=== PATIENT | female | born 2000 | race Caucasian/White ===

== ENCOUNTER 2021-11-09 15:18 | Outpatient (CLI) | payer OTHER, SELFPAY | END 2021-11-09 23:59 | disposition short-term general hospital (02) | LOC: IMMUN 11-17 15:18 | PROVIDERS: Visit Provider Family Medicine | DX: Z23 Encounter for immunization (principal) ==

== ENCOUNTER 2022-08-13 01:46 | Emergency (ER) | payer OTHER, SELFPAY ==
[2022-08-13 01:49] VITALS: BP 129/82; PULSE 102; RESP 20; TEMP 36.1; O2SAT 100; BMI 21.6
[2022-08-13] MEDS: Ondansetron ODT 4 MG Tablet PO (02:17)
--- NOTE | 2022-08-13 02:55 | EDS_ITS ---
HPI History of Present Illness Chief Complaint: ETOH Intox Narrative Narrative: Patient is a 22-year-old female with past medical history of anxiety/depression. She went to a [employer] alliance party this evening and chugging vodka. She states she then began to feel very nauseous and had bouts of vomiting. Patient states she was awake while this was occurring but friends had concern because of of the alcohol intoxication with vomiting and called campus security and they decided that she would best be served with a evaluation in the ER versus her wellness center and therefore brought the patient in for evaluation. Patient denies any other substances on board other than the alcohol and she denies any concern for [facility] Medical History Anxiety Depression Home Medications bupropion HCl 150 mg 24 hr tablet, extended release 150 mg PO DAILY 08/13/22 [History Last Taken Unknown] escitalopram oxalate 20 mg tablet 20 mg PO DAILY 08/13/22 [History Last Taken Unknown] norethindrone 1 mg-ethinyl estradiol 20 mcg (21)-iron 75 mg (7) tablet (11/04 (28)) 1 tab PO DAILY 08/13/22 [History Last Taken Unknown] Allergy/AdvReac Type Severity Reaction Status Date / Time No Known Allergies Allergy Verified 08/13/22 01:47 Social History Smoking Status: Never smoker ROS [facility] ED Constitutional Constitutional ED: Denies chills or fever(s) ENT ENT ED: Denies sore throat Cardiovascular Cardiovascular: Denies chest pain Respiratory/Chest Respiratory/Chest: Denies cough or dyspnea Gastrointestinal Gastrointestinal: Reports nausea and vomiting; Denies abdominal pain or diarrhea Genitourinary Genitourinary ED: Denies dysuria Musculoskeletal Musculoskeletal: Denies myalgias Integumentary Denies rash Neurologic Neurologic: Denies headache(s) Hematologic/Lymphatic Hematologic/Lymphatic: Denies easy bleeding or easy bruising EXAM Physical Exam Const Vital Signs: 08/13/22 01:49 08/13/22 01:56 Temperature 97.0 F L Temperature Source Temporal Pulse Rate 102 H Respiratory Rate 20 H Respiratory Effort Normal Respiratory Pattern Normal Blood Pressure 129/82 H Blood Pressure Mean 97 Pulse Ox 100 Oxygen Delivery Method Room Air Positive well nourished and well developed General Appearance ED: well developed HEENT Reports moist mucous membranes HEENT Narrative: No active bleeding or dried blood noted in the posterior pharynx no airway edema or compromise Eyes EOMs intact bilaterally Eyes Narrative: There is scleral injection present pupils are dilated and slightly sluggish to respond to light consistent with alcohol use Neck supple Neck Narrative: No pain with external regulation of thyroid cartilage no crepitance noted Resp normal respiratory effort and clear to auscultation bilaterally Cardio regular rate and regular rhythm GI normal to inspection, nondistended, normoactive bowel sounds, non-tender and non-distended Auscultation: normoactive bowel sounds Palpation: soft Extremity normal to inspection Neuro CN's II-XII intact bilaterally Neuro Narrative: Patient is slightly obtunded consistent with alcohol use with GCS of 14. She awakes to voice and has normal neurologic exam. No signs of head injury noted Sensorium / Orientation: alert Psych mental status grossly normal Skin no rashes or lesions noted MDM MDM MDM Narrative Medical decision making narrative: Patient presented to the ER with GCS of 14 but awoke to voice and responded appropriately and had no report or signs of head trauma. Vitals are stable she has no signs of respiratory distress and I have low concern for aspiration. Patient also has had no further bouts of vomiting and therefore is otherwise safe for discharge. She was witnessed able to walk with a steady gait to and from the restroom Discharge Plan Triage Chief Complaint: ETOH Intox ED Provider: Edward Green Dx/Rx/DC Orders Clinical Impression: Alcohol intoxication, Nausea & vomiting Instructions: ED Alcohol Intoxication Prescriptions: No Action norethindrone-e.estradiol-iron [Junel FE 11/04 (28)] 1 mg-20 mcg (21)/75 mg (7) tablet 1 tab PO DAILY escitalopram oxalate 20 mg tablet 20 mg PO DAILY bupropion HCl 150 mg tablet extended release 24 hr 150 mg PO DAILY Primary Care Provider: Care Physician,No Primary Referrals: Margaret Prather DO [Med Staff - Active Staff] - Care Physician,No Primary [Primary Care Provider] - Disposition Disposition: Home, Self Care
== END 2022-08-13 03:30 | disposition home or self-care (01) ==
PROVIDERS: Emergency Provider Emergency Medicine; Visit Provider Emergency Medicine
DX: F10.129 Alcohol abuse with intoxication, unspecified (principal); R11.2 Nausea with vomiting, unspecified; F41.9 Anxiety disorder, unspecified; F32.A Depression, unspecified; Z79.899 Other long term (current) drug therapy
CPT/HCPCS: 99284